=== PATIENT | male | born 1985 | race Caucasian/White ===

== ENCOUNTER 2020-06-15 22:51 | Emergency (ER) | payer BC, SELFPAY ==
[2020-06-15] VITALS (7 sets, daily range): BP systolic 141–164; BP diastolic 95–106; PULSE 98–106; RESP 11–18; TEMP 36.6; O2SAT 99–100
--- NOTE | ~2020-06-15 | XR_ITS ---
EXAMINATION: XR chest 1V portable EXAM DATE: 06/15/2020 23:17 INDICATION: Palpitations, high heart rate. TECHNIQUE: Portable AP frontal chest x-ray was obtained. There is no prior study for comparison. FINDINGS: The lungs are clear. There are no pleural effusions. The cardiomediastinal silhouette is within normal limits. There is no pneumothorax suspected. The bones and soft tissues are unremarkab le. IMPRESSION: Unremarkable chest x-ray exam. Reviewed, dictated and finalized at location A. GER TRUCK
--- NOTE | 2020-06-15 23:06 | ECG_ITS ---
Measurements Intervals Proctor Rate: 102 P: 58 PA: 229 QRS: 18 QRSD: 89 T: 31 QT: 325 QTc: 425 Interpretive Statements SINUS TACHYCARDIA WITH FIRST DEGREE AV BLOCK ABNORMAL ECG Electronically Signed On 06-16-2020 7:46:01 [employer] LEAF ROLL[employer] by Bao Comer D.O.
[2020-06-15] MEDS: ASPIRIN 81 MG CHEWABLE TABLET 324 MG PO (23:14)
[2020-06-15] MEDS: SODIUM CHLORIDE 0.9% IV 1,000 ML 999 ML IV CONT (23:14)
[2020-06-15 23:17] LABS: Basophils Percent Auto 0.4 % (0.2-1.2); Eosinophils Absolute Auto 0.2 K/mm3 (0-0.3); Eosinophils Percent Auto 2.6 % (0-4.4); Hemoglobin 15.8 g/dL (14.0-18.0); Immature Granulocyte Absolute 0.03 K/mm3 (0.00-0.031); Immature Granulocyte Percent A 0.3 % (0-0.5); Lymphocytes Absolute Auto 3.38 K/mm3 (0.9-3.2); Lymphocytes Percent Auto 37.3 % (18.3-44.2); Mean Corpuscular HGB Conc 35.1 g/dl (32-36); Mean Corpuscular Hemoglobin 30.2 pg (26-34); Mean Corpuscular Volume 85.9 fl (80-100); Mean Platelet Volume 9.6 fl (7.4-10.4); Monocytes Absolute Auto 0.7 K/mm3 (0.1-0.6); Monocytes Percent Auto 8.1 % (2.6-8.5); Neutrophils Absolute Auto 4.6 K/mm3 (1.3-6.7); Neutrophils Percent Auto 51.3 % (45.5-73.1); Platelet Count Result 243 k/mm3 (150-375); Red Blood Count 5.24 M/mm3 (4.6-6.20); Red Cell Distribution Width 12.8 % (11.5-14.5); White Blood Count 9.1 K/mm3 (4.5-10.0)
--- NOTE | 2020-06-15 23:23 | ED.GENADULT ---
HPI - General Adult General Chief complaint: Arrhythmia/Palpitations Stated complaint: Elevated HR Time Seen by Provider: 06/15/20 23:04 Source: RN notes reviewed History of Present Illness HPI narrative: Patient presents emergency department from home for elevated heart rate. Patient states symptoms began approximately 8 PM this evening states he is in laying in bed when he began to feel like his heart was racing states he took his Fitbit measurement shows heart rate up to 110. Patient denies any other symptoms with elevated heart rate he denies any fever chills chest pain shortness of breath abdominal pain nausea vomiting or any other symptoms states he did have a similar episode 3 weeks ago and went to [facility] where he was evaluated and discharged and told was secondary to anxiety he denies any feelings of anxiety at this time Related Data Home Medications Medication Instructions Recorded Confirmed albuterol sulfate [Ventolin HFA] INHALATION 06/15/20 montelukast mg 06/15/20 Allergies Allergy/AdvReac Type Severity Reaction Status Date / Time Penicillins Allergy Unknown Unknown Verified 06/15/20 23:00 amoxicillin Allergy Unknown Verified 06/15/20 23:00 cefaclor [From Ceclor] Allergy Unknown Verified 06/15/20 23:00 Review of Systems Review of Systems: Narrative: Gen.: Denies fevers or chills ENT: Denies congestion Respiratory: Denies shortness of breath or cough CV: See HPI GI: Denies abdominal pain nausea, emesis or diarrhea Musculoskeletal: Denies back pain or muscle pain Neuro: Denies numbness, tingling, weakness or focal weakness Skin: Denies rash Except as documented, all other systems reviewed and negative [facility] Past Medical History Medical History (Updated 06/16/20 @ 03:07 by David Grier DO) Patient denies significant medical history Social History Social History (Updated 06/15/20 @ 23:25 by David Grier DO) Smoking status: Never smoker Exam Narrative: Exam Narrative: APPEARANCE: No acute distress, nontoxic, resting in bed EYES: EOMI HEENT: Normocephalic, atraumatic, OMM RESPIRATORY: No respiratory distress Clear to auscultation bilaterally with no rhonchi wheezing or rales. CARDIOVASCULAR: Regular rate and rhythm without murmurs rubs or gallops. ABDOMINAL: Soft, nontender, nondistended, no rebound or guarding MUSCULOSKELETAl: Moves all extremities. No clubbing, cyanosis or edema. NEURO: Awake and alert. Following commands, speech normal, no focal deficits SKIN:: Warm, dry. No rashes lesions or abrasions PSYCHIATRIC: Normal affect/mood, Course Course Emergency Course: Patient states he did well with Dr. Teran following his previous ED visit and had a Holter monitor performed at [facility] that he took off on this past Wednesday was not have the results back yet Called and discussed with Dr. Gregg presentation work-up agrees with plan for discharge with follow-up as an outpatient Discussed with patient results of workup and diagnosis. Discussed need for follow-up with primary care, proper use of medication, and reasons to return to the emergency department. Patient understands and agrees to current treatment plan Vital Signs Vital signs: Vital Signs Temperature 97.8 F 06/15/20 22:56 Pulse Rate 106 H 06/15/20 22:56 Respiratory Rate 18 06/15/20 22:56 Blood Pressure 164/100 H 06/15/20 22:56 Pulse Oximetry 99 06/15/20 22:56 Temperature 97.8 F 06/15/20 22:56 Pulse Rate 115 H 06/16/20 00:30 Respiratory Rate 9 L 06/16/20 00:30 Blood Pressure 154/97 H 06/16/20 00:30 Pulse Oximetry 98 06/16/20 00:30 Medical Decision Making MDM Narrative Medical decision making narrative: Patient was sinus tachycardia in the ED is remained sinus rhythm. There are arrhythmia noted patient has no chest pain or shortness of breath TSH is within normal limits negative D-dimer negative troponins x2 discussed with cardiology at this time will dis
[2020-06-15 23:27] LABS: Anion Gap 9 mmol/L (8-16); Blood Urea Nitrogen 15 mg/dL (9-20); Calcium 9.3 mg/dL (8.4-10.2); Carbon Dioxide 28 mmol/L (22-30); Chloride 103 mmol/L (98-107); Estimated CRCL calculation 99 ml/min; Estimated Glomerular Filt Rate > 60; Glucose 124 mg/dL (75-110); Potassium 3.5 mmol/L (3.4-5.0); Sodium 140 mmol/L (137-145)
[2020-06-15 23:28] LABS: INR 0.8; Partial Thromboplastin Time 28.3 SECONDS (22.3-36.8); Prothrombin Time 11.7 Seconds (11.1-14.7)
[2020-06-15 23:31] LABS: D Dimer 0.44 ug/mL (<0.48)
[2020-06-15 23:38] LABS: Troponin I < 0.012 ng/mL (0.000-0.034)
[2020-06-16] VITALS: BP 147/99; PULSE 105; RESP 15; O2SAT 100
[2020-06-16 00:01] VITALS: PULSE 107; RESP 15; O2SAT 99
[2020-06-16 00:21] VITALS: PULSE 116; RESP 19; O2SAT 100
[2020-06-16 00:30] VITALS: BP 154/97; PULSE 115; RESP 9; O2SAT 98
[2020-06-16] MEDS: LORazepam INJ (*CRX) 2 MG/ML VIAL 0.5 MG IV PUSH (00:59)
[2020-06-16] MEDS: SODIUM CHLORIDE 0.9% IV 1,000 ML 999 ML IV CONT (02:35)
[2020-06-16 02:51] LABS: Troponin I < 0.012 ng/mL (0.000-0.034)
[2020-06-16 03:30] VITALS: BP 150/93; PULSE 102; RESP 18; O2SAT 98
== END 2020-06-16 03:32 | disposition home or self-care (01) ==
PROVIDERS: Emergency Provider Emergency Medicine; PCP Family Medicine
DX: R00.0 Tachycardia, unspecified (principal); I44.0 Atrioventricular block, first degree
CPT/HCPCS: 36415; 71045; 80048; 84443; 84484; 85025; 85380; 85610; 85730; 93005; 96361; 96374; 99284; A9270; J2060; J7030

== ENCOUNTER 2024-05-28 17:13 | Emergency (ER) | payer BC, SELFPAY ==
--- NOTE | ~2024-05-28 | XR_ITS ---
XR chest 2V DATE: 05/28/2024 17:56 INDICATION: Cough, fever TECHNIQUE: 2 views COMPARISON: 06/15/2020 portable AP chest FINDINGS: Normal heart size. No hilar or mediastinal enlargement. No pulmonary infiltrate or consolidation, pleural effusion or pulmonary vascular congestion or pneumo thorax is detected. IMPRESSION: No active cardiopulmonary disease Reviewed, dictated and finalized at location A. AVER LETTER
[2024-05-28 17:21] VITALS: BP 145/90; PULSE 114; RESP 18; TEMP 37.6; O2SAT 98
[2024-05-28 17:26] VITALS: BP 145/90; PULSE 114; RESP 18; TEMP 37.6; O2SAT 98
[2024-05-28 17:42] LABS: EDSTREPNEGPOS1 Negative (Negative)
[2024-05-28 17:50] LABS: EDCOVIDSCREEN Negative (Negative)
[2024-05-28 17:51] LABS: EDINFLUASCREEN Negative (Negative); EDINFLUBSCREEN Negative (Negative)
--- NOTE | 2024-05-28 17:51 | ED_ITS ---
HPI - URI/Sore Throat General Chief Complaint: Upper Respiratory Infection Stated Complaint: flu symptoms Time Seen by Provider: 05/28/24 17:38 Source: patient and RN notes reviewed Mode of arrival: ambulatory Limitations: no limitations History of Present Illness HPI Narrative: Patient presents today with a 4 day history of sore throat with congestion and cough that started yesterday and fever up to 103 that started this afternoon. Denies shortness of breath or chest pain. He has tried DayQuil, NyQuil, and Mucinex DM without relief. History of asthma that is mostly seasonal. He has not used his rescue inhaler since he has been ill. Reports 3-year-old child and at home with similar symptoms. He is a nonsmoker. Related Data Home Medications Medication Instructions Recorded Confirmed aspirin 81 mg tablet,delayed 81 mg PO DAILY 06/24/22 02/01/24 release (Adult Aspirin Regimen) odgcnmpq-duxzaehw-wmvvh acid 400 tablet PO 06/30/22 02/01/24 mcg-vit K 20 mcg-lycop 300 mcg tablet (One-A-Day Men's Multivitamin) ascorbic acid (vitamin C) 100 mg 100 mg PO DAILY 05/28/24 05/28/24 tablet Allergies Allergy/AdvReac Type Severity Reaction Status Date / Time Pertussis Vaccines Allergy Severe Stopped Verified 05/28/24 17:25 Breathing Penicillins Allergy Unknown Anaphylactic Verified 05/28/24 17:25 Shock amoxicillin Allergy Unknown Verified 02/01/24 17:07 cefaclor [From Replaced By [facility]] Allergy Anaphylactic Verified 05/28/24 17:25 Shock Review of Systems Review of Systems: CONSTITUTIONAL: Denies body aches, chills, or sweats.+ fever EYES: Denies visual changes, redness, or discharge. ENT: Denies rhinorrhea,or otalgia.+ congestion, sore throat CARDIOVASCULAR: Denies chest pain, palpitations, or edema. RESPIRATORY: Denies dyspnea.+ cough GASTROINTESTINAL: Denies abdominal pain, nausea, vomiting, or diarrhea. GENITOURINARY: Denies dysuria or hematuria. SKIN: Denies rash, itching, or wounds. MUSCULOSKELETAL: Denies back pain, joint pain, or myalgia. NEUROLOGIC: Denies headache, numbness, tingling, or weakness. PSYCH: Denies depression or anxiety. [facility] Past Medical History Medical History Asthma Essential (primary) hypertension Lipoma of neck RENETTA (obstructive sleep apnea) Pure hypercholesterolemia, unspecified Unspecified asthma, uncomplicated Family History Family History Father , age 65 of a heart attack Acute myocardial infarction Diabetes mellitus Mother Diabetes mellitus Grandparent , age 68 of a heart attack Acute myocardial infarction Heart disease Grandparent , age 77 of a heart attack Acute myocardial infarction Grandparent Cancer Alzheimers disease Social History Social History Smoking status: Never smoker Alcohol intake: current Drinks per week: 3 Substance use: never Substance use type: does not use Do You Feel Safe in your Home?: Yes Lack of Transportation: No Lack of Food: Never True Current Housing: I Have Housing Concerned About Future Housing: No Difficulty Paying Gas/Electric Bills: No Difficulty Paying for Meds: No Currently Unemployed: No Education: Bachelor's Degree Difficulty w/ Childcare or Family Care: No Living arrangements: with family Occupation/Education: occupation Gender identity (if verbalized by the patient): Male Sexual Orientation (if Verbalized by the Patient): Straight or Heterosexual Spiritual care concerns: No Comments At time of signature, I have reviewed and agree with nursing past medical, surgical, social and family history unless otherwise noted. Please see nursing chart for further information. There is no relevant family history pertinent to the presenting complaint Exam Narrative: GENERAL: Mildly ill-appearing, well-nourished, and in no acute distress. HEAD: Normocephalic, atraumatic. EYES: EOMI. No redness or drainage. Conjunctivae normal. ENT: Mucous membranes pink and moist. Nares congested with purulent nasal drainage. TMs normal bilaterally. Throat normal. Uvula midline. NECK: Normal AROM. Supple. No lymphadenopathy. CHEST: No respiratory distress. Slight crackling in the left upper and right lower lobes, otherwise clear HEART: Regular rhythm. No murmur appreciated.+ tachycardia EXTREMITIES: Normal range of motion. No edema. SKIN: Warm, dry, no rash. Capillary refill normal. Normal skin turgor. NEURO: No focal deficits. Alert and oriented x3. Gait steady. PSYCH: Normal affect. No signs of depression or anxiety. Course Course Level of Care: Express Care Visit Vital Signs Vital signs: Vital Signs Temperature 99.6 F 05/28/24 17:21 Pulse Rate 114 H 05/28/24 17:21 Respiratory Rate 18 05/28/24 17:21 Blood Pressure 145/90 H 05/28/24 17:21 Pulse Oximetry 98 05/28/24 17:21 Oxygen Delivery Room Air 05/28/24 17:21 Temperature 99.6 F 05/28/24 17:26 Pulse Rate 114 H 05/28/24 17:26 Respiratory Rate 18 05/28/24 17:26 Blood Pressure 145/90 H 05/28/24 17:26 Pulse Oximetry 98 05/28/24 17:26 Oxygen Delivery Room Air 05/28/24 17:26 Reviewed MDM - URI/Sore Throat MDM Narrative Medical decision making narrative: COVID and influenza negative. Rapid strep negative. Culture pending. Chest x- ray negative. Patient will be started on a course of antibiotics for presumed sinusitis due to congestion, purulent nasal drainage, and new onset fever. Anticipatory guidance given Differential Diagnosis Differential diagnosis: Likely upper respiratory infection, viral infection, influenza and other (COVID, pneumonia) Lab Data Attestation: I reviewed the patient's lab results. Labs: Lab Results 05/28/24 05/28/24 Range/Units 17:40 17:50 POC Influenza A Ag Negative (Negative) POC Influenza B Ag Negative (Negative) POC SARS CoV-2 Ag Negative (Negative) POC Grp A Strep Screen Negative (Negative) Imaging Data Radiologist's impression: ITS Impressions Chest X-Ray 05/28/24 18:02 IMPRESSION: No active cardiopulmonary disease Critical Care Time Critical Care Time Critical Care Time: No Discharge Plan Discharge Clinical Impression: Sinusitis Qualifiers: Sinusitis location: unspecified location Chronicity: acute Recurrence: non- recurrent Qualified Code(s): J01.90 - Acute sinusitis, unspecified Patient Disposition: Home, Self-Care Condition: Stable Instructions: Antibiotic Form, Sinusitis (ED) Additional Instructions: Your COVID, influenza, strep tests are all negative today. Your chest x-ray is also negative for pneumonia. Please take the doxycycline as prescribed until gone. Continue kwig-wyr-pjprohm medication as needed. Follow-up with your PCP in 3 days if symptoms are not improving. As discussed, please go to the ER for further evaluation if you develop worsening symptoms such as shortness of breath, chest pain. Your blood pressure was elevated above 120/80 today at Urgent Care. This puts you above the threshold for follow up. Please schedule a followup visit with your personal physician as soon as possible, for further evaluation and treatment. Even blood pressure exceeding 120/80 may indicate pre-hypertension. Prescriptions: New doxycycline hyclate 100 mg tablet 100 mg PO BID 7 Days Qty: 14 0RF No Action ascorbic acid (vitamin C) 100 mg Tablet 100 mg PO DAILY One-A-Day Men's Multivitamin 400-20-300 mcg tablet PO aspirin [Adult Aspirin Regimen] 81 mg tablet,delayed release (DR/EC) 81 mg PO DAILY albuterol sulfate [Ventolin HFA] 90 mcg/actuation HFA aerosol inhaler 2 puff INHALATION Q4-6H PRN (Reason: shortness of breath or wheezing) Qty: 17 1RF metoprolol succinate 25 mg tablet extended release 24 hr See Rx Instructions .ROUTE .COMPLEX Qty: 90 3RF Dose Instruction: TAKE 1 TABLET BY MOUTH DAILY Rx Instructions: TAKE 1 TABLET BY MOUTH DAILY montelukast 10 mg tablet See Rx Instructions .ROUTE .COMPLEX Qty: 90 3RF Dose Instruction: TAKE 1 TABLET BY MOUTH DAILY Rx Instructions: TAKE 1 TABLET BY MOUTH DAILY Follow-up/Referrals: Pablo Teran MD [Primary Care Provider] - Time of Disposition: 18:18
== END 2024-05-28 18:21 | disposition home or self-care (01) ==
PROVIDERS: Emergency Provider Nurse Practitioner; PCP Family Medicine
DX: J01.90 Acute sinusitis, unspecified (principal); Z20.822 Contact with and (suspected) exposure to COVID-19; J45.909 Unspecified asthma, uncomplicated; I10 Essential (primary) hypertension; E78.00 Pure hypercholesterolemia, unspecified; Z79.82 Long term (current) use of aspirin
CPT/HCPCS: 71046; 87081; 87426; 87804; 87880; 99213; G0463

== ENCOUNTER 2024-12-07 18:41 | Emergency (ER) | payer BC, SELFPAY ==
--- OUTSIDE RECORDS SUMMARY | 2024-12-07 18:43 | XMS_ITS | Referral Summary ---
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
--- OUTSIDE RECORDS SUMMARY | 2024-12-07 18:43 | XMS_ITS | Clinical Summary ---
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 Gender Identity Not on file Sexual Orientation Not on file Plan of Treatment Health Maintenance Due Date Last Done Comments Hepatitis C Virus (HCV) Screening 1987 TdaP Immunization 1987 Hepatitis B Immunization (1 of 3 - 19+ 3-dose series) 2006 Influenza Immunization (#1) 2024 SARS-COV-2 Immunization (3 - 2023- season) 2024 12/13/2020, 11/19/2020 Respiratory Syncytial Virus (RSV) Immunization (Adult) (1 - 1-dose 75+ series) 2062 Meningococcal Immunization (ACWY) Aged Out No longer eligible b ased on patient's age to complete this topic Pneumococcal Immunization Combined Aged Out No longer eligible b ased on patient's age to complete this topic Rotavirus Immunization Aged Out No lo nger eligible based on patient's age to complete this topic
--- OUTSIDE RECORDS SUMMARY | 2024-12-07 18:43 | XMS_ITS | Clinical Summary ---
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
--- OUTSIDE RECORDS SUMMARY | 2024-12-07 18:43 | XMS_ITS | Clinical Summary ---
Author Organization [facility] Address [facility] [place] [address] Care Team Providers Care Finance Admin Name Role Phone Pablo Teran MD Primary Care Provider [phone] Allergies Active Allergy Reactions Criticality Noted Date Comments Cefaclor Unknown 07/21/2012 Penicillins Unknown 07/21/2012 Medications albuterol sulfate HFA (VENTOLIN HFA) 108 (90 Base) MCG/ACT inhaler Inhale 2 puffs into the lungs. 02/17/2012 Active fluticasone propionate 50 MCG/ACT nasal spray 2 sprays by Nasal route daily. 01/19/2017 Active montelukast 10 MG tablet Take 10 mg by mouth daily. 06/01/2012 Active Family History Medical History Relation Comments Diabetes Father Heart Disease Father Diabetes Mother Relation Status Comments Father Mother Social History Tobacco Use Types Packs/Day Years Used Date Smoking Tobacco: Never Smokeless Tobacco: Never Alcohol Use Standard Drinks/Week Comments Never 0 (1 standard drink = 0.6 oz pur e alcohol) AUDIT-C Answer Date Recorded Q1: How often do you have a drink containing alc ohol? Never 05/14/2020 Average Number of Drinks Not on file 020 Frequency of Binge Drinking Not on file 04/22 Sex and Gender Information Value Date Recorded Sex Assigned at Not on file Legal Sex Male 7:11 PM CDT Gender Identity Not on file Sexual Orientation Not on file Last Filed Vital Signs Vital Sign Reading Time Taken Comments Blood Pressure 155/108 05/14/2020 9:23 PM BOW MAKER CUSTOM Pulse 98 05/14/2020 9:23 PM BOW MAKER CUSTOM Temperature 36.7 C (98 F) 05/14/2020 8:34 PM BOW MAKER CUSTOM Respiratory Rate 20 05/14/2020 9:23 PM BOW MAKER CUSTOM Oxygen Saturation 97% 05/14/2020 9:23 PM BOW MAKER CUSTOM Inhaled Oxygen Concentration - - Weight 88.5 kg (195 lb) 05/14/2020 8:05 PM BOW MAKER CUSTOM Height 172.7 cm (5' 8) 05/14/2020 8:05 PM BOW MAKER CUSTOM Body Mass Index 29.65 05/14/2020 8:05 PM BOW MAKER CUSTOM Plan of Treatment Health Maintenance Due Date Last Done Comments Annual Physical 1990 Hepatitis C 2005 DTaP, Tdap and Td Vaccines ( 1 - Tdap) 2006 Hepatitis B Vaccines (1 of 3 - 19+ 3-dose series) 2006 COVID-19 Vaccine (2023-2 5 season) 2024 HPV Vaccines Aged Out No longer eligi ble based on patient's age to complete this topic Meningococcal B Vaccine Aged Out No l onger eligible based on patient's age to complete this topic Meningococcal Vaccine Aged Out No maryann art eligible based on patient's age to complete this topic Pneumococcal Vaccine: Pediat rics (0 to 5 Years) and At-Risk Patients (6 to 49 Years) Aged Out No longer eligible b ased on patient's age to complete this topic RSV Immunizations Under 20 Months Aged Out No longer eligible based on patient's age to complete this topic [place] [address] [place] [address] Care Teams Finance Admin Relationship Specialty Start Date End Date Pablo Teran MD [address] [place] [id number] PCP - General FAMILY PRACTICE 05/14/20
--- OUTSIDE RECORDS SUMMARY | 2024-12-07 18:43 | XMS_ITS | Encounter Summary ---
Author Organization [facility] Address [facility]ly [facility] [place] [address] Care Team Providers Care Mortar Man Name Role Phone Mike Celis MD Primary Care Provider Pablo Moser MD Primary Care Provider [phone] Encounter Details Date Type Department Care Team (Late st Contact Info) Description 04/24/2017 [place] [address] , Generic ConversionMD Social History Tobacco Use Types Packs/Day Years Used Date Smoking Tobacco: Never Assessed Sex and Gender Information Value Date Recorded Sex Assigned at Not on file Legal Sex Male 7:11 PM CDT Gender Identity Not on file Sexual Orientation Not on file documented as of this encounter Plan of Treatment Not on file documented as of this encounter Visit Diagnoses Not on filedocumented in this encounter Care Teams Mortar Man Relationship Specialty Start Date End Date Mike Celis MD PCP - General 12/18/14 05/13/20 Pablo Teran MD [address] [place] [id number] PCP - General FAMILY PRACTICE 05/14/20 documented as of this encounter
--- NOTE | 2024-12-07 18:44 | ED.URI ---
HPI - URI/Sore Throat General Chief Complaint: Upper Respiratory Infection Stated Complaint: Sore Throat Time Seen by Provider: 12/07/24 18:55 History of Present Illness HPI Narrative: 39 y/o male presented for c/o sore throat x5 days. Endorses exposure to strep from coworker. Denies any associated symptoms. Denies difficulty swallowing or maintaining secretions. Related Data Home Medications ?Medication ?Instructions ?Recorded ?Confirmed ?Last Taken ?Type aspirin 81 mg tablet,delayed 81 mg PO DAILY 06/24/22 02/01/24 Unknown History release (Adult Aspirin Regimen) awiufyoz-duprabhb-fgfiw acid 400 tablet PO 06/30/22 02/01/24 Unknown History mcg-vit K 20 mcg-lycop 300 mcg tablet (One-A-Day Men's Multivitamin) ascorbic acid (vitamin C) 100 mg 100 mg PO DAILY 05/28/24 05/28/24 Unknown History tablet Allergies Allergy/AdvReac Type Severity Reaction Status Date / Time Pertussis Vaccines Allergy Severe Stopped Verified 12/07/24 18:52 Breathing Penicillins Allergy Unknown Anaphylactic Verified 12/07/24 18:52 Shock amoxicillin Allergy Unknown Verified 12/07/24 18:52 cefaclor (From Ceclor) Allergy Anaphylactic Verified 12/07/24 18:52 Shock Review of Systems Review of Systems: CONSTITUTIONAL: Denies body aches, fever, chills, or sweats. EYES: Denies visual changes, redness, or discharge. ENT: reports sore throat Denies rhinorrhea, congestion, or otalgia. CARDIOVASCULAR: Denies chest pain, palpitations, or edema. RESPIRATORY: Denies dyspnea. GASTROINTESTINAL: Denies abdominal pain, nausea, vomiting, or diarrhea. SKIN: Denies rash NEUROLOGIC: Denies headache PMFSH Past Medical History Medical History Asthma Essential (primary) hypertension Lipoma of neck RENETTA (obstructive sleep apnea) Pure hypercholesterolemia, unspecified Unspecified asthma, uncomplicated Family History Family History Father , age 65 of a heart attack Acute myocardial infarction Diabetes mellitus Mother Diabetes mellitus Grandparent , age 68 of a heart attack Acute myocardial infarction Heart disease Grandparent , age 77 of a heart attack Acute myocardial infarction Grandparent Cancer Alzheimers disease Social History Social History Smoking status: Never smoker Alcohol intake: current Drinks per week: 3 Substance use: never Substance use type: does not use Do You Feel Safe in your Home?: Yes Lack of Transportation: No Lack of Food: Never True Current Housing: I Have Housing Concerned About Future Housing: No Difficulty Paying Gas/Electric Bills: No Difficulty Paying for Meds: No Currently Unemployed: No Education: Bachelor's Degree Difficulty w/ Childcare or Family Care: No Living arrangements: with family Occupation/Education: occupation Gender identity (if verbalized by the patient): Male Sexual Orientation (if Verbalized by the Patient): Straight or Heterosexual Spiritual care concerns: No Exam Narrative: GENERAL: well-appearing, no acute distress. EYES: conjunctivae clear ENT: Mucous membranes moist. TM pearly hope with normal light reflex bilaterally; no tragal tenderness. Oropharynx erythematous without lesions. Tonsils enlarged 1+ and without exudate. No drooling, no hoarseness, no trismus, uvula midline. No tripod positioning, hot potato voice, or soft palate swelling. NECK: Supple. No lymphadenopathy CHEST: Clear to auscultation, breath sounds equal. No respiratory distress, speaks in full sentences. HEART: Regular rate and rhythm. No murmur heard. SKIN: Warm, dry, no rash. NEURO: Alert and oriented x3. Course Course Emergency Course: Patient is aware of diagnosis, understands and agrees to treatment plan. Anticipatory guidance given. Patient agrees to follow-up as directed and is aware of reasons to seek care at the emergency department. Portions of this record may have been created with voice recognition software Level of Care: Express Care Visit MDM - URI/Sore Throat MDM Narrative Medical decision making narrative: strep result reviewed with pt. will treat based on exposure. Advise supportive treatments. Patient is appropriate for outpatient treatment and follow-up. Differential Diagnosis Differential diagnosis: Likely upper respiratory infection, viral infection and pharyngitis Discharge Plan Discharge Clinical Impression: Pharyngitis Qualifiers: Pharyngitis/tonsillitis etiology: unspecified etiology Qualified Code(s): J02.9 - Acute pharyngitis, unspecified Patient Disposition: Home Condition: Stable Instructions: Antibiotic Form, Strep Throat (ED) Additional Instructions: Rapid strep swab was negative today if symptoms are due to a viral illness, it is not treated with antibiotics. Viral symptoms can be present for up to 10-14 days. Recommendations: Flonase spray and Zyrtec for sinus congestion Tylenol every 8 hours as needed for pain/fever Soft foods, cool liquids, warm tea. Gargle with warm saltwater twice a day. Chloraseptic spray and throat lozenges. Rest and stay hydrated. --Follow up with your PCP --Go to the ER immediately if you cannot swallow your saliva, trouble breathing/wheezing, throat swelling, pain is persistent and severe Patient Language: Nigerien Prescriptions: New azithromycin [Zithromax Z-Sivakumar] 250 mg tablet See Rx Instructions .ROUTE .COMPLEX Qty: 6 0RF Rx Instructions: For 250 mg dose pack: take 500 mg today (day 1), then 250 mg for 4 days (days 2-5) No Action ascorbic acid (vitamin C) 100 mg Tablet 100 mg PO DAILY One-A-Day Men's Multivitamin 400-20-300 mcg tablet PO aspirin [Adult Aspirin Regimen] 81 mg tablet,delayed release (DR/EC) 81 mg PO DAILY metoprolol succinate 25 mg tablet extended release 24 hr See Rx Instructions .ROUTE .COMPLEX Qty: 90 3RF Dose Instruction: TAKE 1 TABLET BY MOUTH DAILY Rx Instructions: TAKE 1 TABLET BY MOUTH DAILY montelukast 10 mg tablet See Rx Instructions .ROUTE .COMPLEX Qty: 90 3RF Dose Instruction: TAKE 1 TABLET BY MOUTH DAILY Rx Instructions: TAKE 1 TABLET BY MOUTH DAILY albuterol sulfate [Ventolin HFA] 90 mcg/actuation HFA aerosol inhaler 2 puff INHALATION Q4-6H PRN (Reason: shortness of breath or wheezing) Qty: 17 1RF Follow-up/Referrals: Pablo Teran MD [Primary Care Provider] - Time of Disposition: 19:07
[2024-12-07 18:46] VITALS: BP 136/82; PULSE 77; RESP 18; TEMP 36.8; O2SAT 98
[2024-12-07 19:07] LABS: EDSTREPNEGPOS1 Negative (Negative)
== END 2024-12-07 19:08 | disposition home or self-care (01) ==
PROVIDERS: Emergency Provider Nurse Practitioner Family; PCP Family Medicine
DX: J02.9 Acute pharyngitis, unspecified (principal); I10 Essential (primary) hypertension; E78.00 Pure hypercholesterolemia, unspecified; J45.909 Unspecified asthma, uncomplicated; Z79.82 Long term (current) use of aspirin
CPT/HCPCS: 87081; 87880; 99213; G0463